=== PATIENT | female | born 1985 | race African-American/Black ===

== ENCOUNTER 2017-09-12 11:49 | Emergency (ER) | payer SELFPAY ==
[2017-09-12 12:03] VITALS: BMI 26.6
--- NOTE | 2017-09-12 12:08 | PDOC ---
History of Present Illness - General History Source: Patient Exam Limitations: No Limitations - History of Present Illness Initial Comments: 09/12/17 12:09 LMP: 03/15/2017 32-year-old female with history of NIDDM presents to the emergency department complaining of low back pain since yesterday. Pain is described as 4/10 dull nonradiating intermittent discomfort. There are no exacerbating factors but the pain is alleviated at rest. Patient states she did not take anything for pain. Patient denies any fall/injury, headache, dizziness, lightheadedness, neck pains , chest pain, shortness of breath, abdominal pains, extremity numbness or tingling sensation, bladder or bowel dysfunction, urinary symptoms, vaginal discharge or bleeding, hematuria. Timing/Duration: 24 hours <Mya Green - Last Filed: 09/12/17 12:13> <Becky Estes - Last Filed: 09/12/17 12:22> - General Chief Complaint: Labor Assessment Stated Complaint: COMPLICATIONS Time Seen by Provider: 09/12/17 12:01 Past History - Past Medical History Anemia: No Asthma: No Cancer: No Cardiac Disorders: No CVA: No COPD: No CHF: No Dementia: No Diabetes: Yes GI Disorders: No Disorders: No HTN: No Hypercholesterolemia: No Liver Disease: No Seizures: No Thyroid Disease: No - Suicide/Smoking/Psychosocial Hx Smoking Status: No Smoking History: Never smoked Have you smoked in the past 12 months: No Number of Cigarettes Smoked Daily: 0 Hx Alcohol Use: No Drug/Substance Use Hx: No Substance Use Type: None Hx Substance Use Treatment: No <Mya Green - Last Filed: 09/12/17 12:13> <Becky Estes - Last Filed: 09/12/17 12:22> - Past Medical History Allergies/Adverse Reactions: Allergies Allergy/AdvReac Type Severity Reaction Status Date / Time No Known Allergies Allergy Verified 09/12/17 12:12 Home Medications: Ambulatory Orders No Home Medications 0 dose .ROUTE UTDICT 09/28/12 Pantoprazole Sodium [Protonix -] 40 mg PO DAILY #14 tablet.ec 07/07/16 Review of Systems - Review of Systems Able to Perform ROS?: Yes Comments:: 09/12/17 12:09 CONSTITUTIONAL: Absent: fever, chills, diaphoresis, generalized weakness, malaise, loss of appetite HEENT: Absent: rhinorrhea, nasal congestion, throat pain, throat swelling, difficulty swallowing, mouth swelling, ear pain, eye pain, visual Changes CARDIOVASCULAR: Absent: chest pain, loss of consciousness, palpitations, irregular heart rate, peripheral edema RESPIRATORY: Absent: cough, shortness of breath, dyspnea with exertion, orthopnea, wheezing, stridor, hemoptysis GASTROINTESTINAL: Absent: abdominal pain, abdominal distension, nausea, vomiting, diarrhea, constipation, melena, hematochezia GENITOURINARY: Absent: dysuria, frequency, urgency, hesitancy, hematuria, flank pain, genital pain MUSCULOSKELETAL: Absent: myalgia, arthralgia, joint swelling SKIN: Absent: rash, itching, pallor HEMATOLOGIC/IMMUNOLOGIC: Absent: easy bleeding, easy bruising, lymphadenopathy, frequent infections Is the patient limited Faroese proficient: No <Salvador Greenui - Last Filed: 09/12/17 12:13> *Physical Exam - Vital Signs Last Vital Signs Temp Pulse Resp BP Pulse Ox 98.5 F 99 H 16 119/69 100 09/12/17 12:01 09/12/17 12:01 09/12/17 12:01 09/12/17 12:01 09/12/17 12:01 - Physical Exam Comments: 09/12/17 12:09 GENERAL: Well developed, well nourished. Awake and alert. No acute distress. HEENT: Normocephalic, atraumatic. PERRLA, EOMI. No conjunctival pallor. Sclera are non- icteric. Moist mucous membranes. Oropharynx is clear. NECK: Supple. Full ROM. No JVD. Carotid pulses 2+ and symmetric, without bruits. No thyromegaly. No lymphadenopathy. CARDIOVASCULAR: Regular rate and rhythm. No murmurs, rubs, or gallops. Distal pulses are 2+ and symmetric. PULMONARY: No evidence of respiratory distress. Lungs clear to auscultation bilaterally. No wheezing, rales or rhonchi. ABDOMINAL: Soft. Non-tender. Non-distended. No rebound or guarding. No organomegaly. Normoactive bowel sounds. MUSCULOSKELETAL Normal range of motion at all joints. No bony deformities or tenderness. No CVA tenderness. EXTREMITIES: No cyanosis. No clubbing. No edema. No calf tenderness. SKIN: Warm and dry. Normal capillary refill. No rashes. No jaundice. Pelvic: External genitalia normal without lesions. Vaginal vault is clear without blood or discharge. Cervix is long and closed. <Mya Green - Last Filed: 09/12/17 12:13> - Vital Signs Last Vital Signs Temp Pulse Resp BP Pulse Ox 98.5 F 99 H 16 119/69 100 09/12/17 12:01 09/12/17 12:01 09/12/17 12:01 09/12/17 12:01 09/12/17 12:01 <Becky Estes - Last Filed: 09/12/17 12:22> Medical Decision Making - Medical Decision Making 09/12/17 12:19 Pt seen by the Advanced Practice Provider under my direct supervision Ancillary studies reviewed I agree with plan as outlined by the Advanced Practice Provider Pt is 23 weeks p/w atraumatic back pain. Exam is benign, likely related back pain. Pt transferred to L&D for monitoring. <Becky Estes - Last Filed: 09/12/17 12:22> *DC/Admit/Observation/Transfer <Mya Green - Last Filed: 09/12/17 12:13> <Becky Estes - Last Filed: 09/12/17 12:22> Diagnosis at time of Disposition: Back pain Qualifiers: Back pain location: low back pain Chronicity: acute Back pain laterality: left Sciatica presence: without sciatica Qualified Code(s): M54.5 - Low back pain - Referrals Referrals: Emi Salgado MD [Primary Care Provider] - - Patient Instructions - Post Discharge Activity Progress Note - Progress Note Progress Note: FS: 85 Pt will be sent to OB for obs <Mya Green - Last Filed: 09/12/17 12:13>
[2017-09-12 13:16] VITALS: BP 114/60; PULSE 101; TEMP 98.9
== END 2017-09-12 14:40 | disposition home or self-care (01) ==
LOC: JER 11:49
DX: O99.89 Other specified diseases and conditions complicating pregnancy, childbirth and the puerperium (principal); M54.5 Low back pain; O24.912 Unspecified diabetes mellitus in pregnancy, second trimester; Z3A.23 23 weeks gestation of pregnancy
CPT/HCPCS: 99281-25